=== PATIENT | female | born 1935 | race Caucasian/White ===

== ENCOUNTER 2016-11-02 | Outpatient (CLI) | END 2016-11-02 21:18 | disposition critical access hospital (66) | CPT/HCPCS: A0425; A0429 ==

== ENCOUNTER 2016-11-02 21:37 | Observation (INO) | payer MEDICARE ==
[2016-11-02] MEDS ORDERED: ACETAMINOPHEN 500 MG TABLET PO STA (23:46)
[2016-11-02] MEDS ORDERED: ACETAMINOPHEN 500 MG TABLET PO ONE (23:48)
[2016-11-03] MEDS ORDERED: ONDANSETRON 4 MG/2 ML VIAL IVP PRN (01:34)
[2016-11-03] MEDS ORDERED: SODIUM CHLORIDE FLUSH 0.9% 10 ML SYRINGE IVP PRN (01:34)
[2016-11-03] MEDS ORDERED: ACETAMINOPHEN 325 MG TABLET PO PRN (01:34)
[2016-11-03] MEDS ORDERED: KETOROLAC 15 MG/ML VIAL IVP PRN (01:42)
[2016-11-03] MEDS: HYDROcod/ACETAM 5/325 MG TABLET PO PRN ×2 (03:04→16:48)
[2016-11-03] MEDS ORDERED: SODIUM CHLORIDE 0.9% 1,000 ML IV SCH (05:00)
[2016-11-03] MEDS: SODIUM CHLORIDE FLUSH 0.9% 10 ML SYRINGE IVP SCH ×3 (05:58→21:54)
[2016-11-03] MEDS: LEVOTHYROXINE 25 MCG TABLET PO SCH (07:04)
[2016-11-03] MEDS: POLYETHYLENE GLYCOL 3350 17 GM PACKET PO SCH (08:37)
[2016-11-03] MEDS: CLOPIDOGREL 75 MG TABLET PO SCH (08:38)
[2016-11-03] MEDS: GABAPENTIN 300 MG CAPSULE PO SCH ×2 (08:38→16:42)
[2016-11-03] MEDS: ASPIRIN EC 81 MG TABLET PO SCH (08:38)
[2016-11-03] MEDS: OXYBUTYNIN 5MG TABLET PO SCH ×2 (08:39→21:54)
[2016-11-03] MEDS: NICOTINE 14 MG PATCH TOP SCH (08:39)
[2016-11-03] MEDS ORDERED: ENOXAPARIN 40 MG/0.4 ML SYRINGE SUBQ SCH (09:00)
[2016-11-03] MEDS ORDERED: GABAPENTIN 300 MG CAPSULE PO SCH (21:00)
[2016-11-03] MEDS ORDERED: NON FORMULARY MED (Simvastatin [Simvastatin] 40 MG) PO SCH (21:00)
[2016-11-03] MEDS: ATORVASTATIN 10 MG TABLET PO SCH (21:53)
[2016-11-04] MEDS: LEVOTHYROXINE 25 MCG TABLET PO SCH (06:55)
[2016-11-04] MEDS: SODIUM CHLORIDE FLUSH 0.9% 10 ML SYRINGE IVP SCH ×3 (06:55→20:46)
[2016-11-04] MEDS: IPRATROPIUM/ALBUTEROL 3 ML NEB INH PRN ×3 (08:44→17:05)
[2016-11-04] MEDS: POLYETHYLENE GLYCOL 3350 17 GM PACKET PO SCH (08:59)
[2016-11-04] MEDS: CLOPIDOGREL 75 MG TABLET PO SCH (09:00)
[2016-11-04] MEDS: OXYBUTYNIN 5MG TABLET PO SCH ×2 (09:00→20:44)
[2016-11-04] MEDS: GABAPENTIN 300 MG CAPSULE PO SCH (09:00)
[2016-11-04] MEDS: ASPIRIN EC 81 MG TABLET PO SCH (09:00)
[2016-11-04] MEDS: NICOTINE 14 MG PATCH TOP SCH (09:01)
[2016-11-04] MEDS: SODIUM CHLORIDE 0.9% 1,000 ML IV SCH (11:22)
[2016-11-04] MEDS: HYDROcod/ACETAM 5/325 MG TABLET PO PRN (17:58)
[2016-11-04] MEDS: ATORVASTATIN 10 MG TABLET PO SCH (20:44)
[2016-11-05] MEDS: SODIUM CHLORIDE 0.9% 1,000 ML IV SCH (01:09)
[2016-11-05] MEDS: HYDROcod/ACETAM 5/325 MG TABLET PO PRN ×2 (05:35→10:29)
[2016-11-05] MEDS: SODIUM CHLORIDE FLUSH 0.9% 10 ML SYRINGE IVP SCH ×3 (05:36→20:51)
[2016-11-05] MEDS: LEVOTHYROXINE 25 MCG TABLET PO SCH (06:29)
[2016-11-05] MEDS: NICOTINE 14 MG PATCH TOP SCH (10:28)
[2016-11-05] MEDS: CLOPIDOGREL 75 MG TABLET PO SCH (10:28)
[2016-11-05] MEDS: ASPIRIN EC 81 MG TABLET PO SCH (10:28)
[2016-11-05] MEDS: DOCUSATE SODIUM 250 MG CAPSULE PO SCH (10:28)
[2016-11-05] MEDS: POLYETHYLENE GLYCOL 3350 17 GM PACKET PO SCH (10:29)
[2016-11-05] MEDS: SENNA 8.6 MG TABLET PO SCH (10:29)
[2016-11-05] MEDS: OXYBUTYNIN 5MG TABLET PO SCH ×2 (10:29→20:51)
[2016-11-05] MEDS: traMADol 50 MG TABLET PO PRN ×2 (10:30→20:51)
[2016-11-05] MEDS: ATORVASTATIN 10 MG TABLET PO SCH (20:50)
[2016-11-06] MEDS: SODIUM CHLORIDE FLUSH 0.9% 10 ML SYRINGE IVP SCH ×2 (05:48→14:23)
[2016-11-06] MEDS: LEVOTHYROXINE 25 MCG TABLET PO SCH (06:30)
[2016-11-06] MEDS: DOCUSATE SODIUM 250 MG CAPSULE PO SCH (08:37)
[2016-11-06] MEDS: ASPIRIN EC 81 MG TABLET PO SCH (08:37)
[2016-11-06] MEDS: CLOPIDOGREL 75 MG TABLET PO SCH (08:37)
[2016-11-06] MEDS: NICOTINE 14 MG PATCH TOP SCH (08:37)
[2016-11-06] MEDS: OXYBUTYNIN 5MG TABLET PO SCH (08:37)
[2016-11-06] MEDS: SENNA 8.6 MG TABLET PO SCH (08:38)
[2016-11-06] MEDS: POLYETHYLENE GLYCOL 3350 17 GM PACKET PO SCH (08:38)
[2016-11-06] MEDS: HYDROcod/ACETAM 5/325 MG TABLET PO PRN ×2 (08:38→14:26)
[2016-11-06] MEDS: traMADol 50 MG TABLET PO PRN (08:38)
[2016-11-06] MEDS: GABAPENTIN 300 MG CAPSULE PO SCH ×2 (08:42→14:26)
== END 2016-11-06 15:51 | disposition home or self-care (01) ==
DX: S32.592A Other specified fracture of left pubis, initial encounter for closed fracture (principal); W01.0XXA Fall on same level from slipping, tripping and stumbling without subsequent striking against object, initial encounter; Y92.481 Parking lot as the place of occurrence of the external cause; T17.920A Food in respiratory tract, part unspecified causing asphyxiation, initial encounter; J96.01 Acute respiratory failure with hypoxia; Y92.239 Unspecified place in hospital as the place of occurrence of the external cause; N17.9 Acute kidney failure, unspecified; E86.0 Dehydration; I95.9 Hypotension, unspecified; L97.411 Non-pressure chronic ulcer of right heel and midfoot limited to breakdown of skin; I10 Essential (primary) hypertension; E78.5 Hyperlipidemia, unspecified; I77.9 Disorder of arteries and arterioles, unspecified; I73.9 Peripheral vascular disease, unspecified; E03.9 Hypothyroidism, unspecified; F32.9 Major depressive disorder, single episode, unspecified; F17.210 Nicotine dependence, cigarettes, uncomplicated; N39.45 Continuous leakage; Z79.02 Long term (current) use of antithrombotics/antiplatelets; Z86.73 Personal history of transient ischemic attack (TIA), and cerebral infarction without residual deficits; Z66 Do not resuscitate; Z79.82 Long term (current) use of aspirin; Z95.1 Presence of aortocoronary bypass graft
CPT/HCPCS: 36415; 36600; 51701; 71010; 71020; 72192; 73502; 80048; 80053; 81003; 82803; 83735; 84100; 84484; 85025; 85651; 86140; 94640; 96360; 96361; 97116; 97162; 97530; 99283; 99285; A9270; G0378; G8978; G8979; J7620

== ENCOUNTER 2016-11-18 10:30 | Outpatient (CLI) | payer MEDICARE | END 2016-11-18 10:31 | disposition home or self-care (01) | DX: R30.0 Dysuria (principal) ==

== ENCOUNTER 2016-11-22 | Outpatient (CLI) | payer MEDICARE | END 2016-11-22 20:05 | disposition critical access hospital (66) | CPT/HCPCS: A0425; A0429 ==

== ENCOUNTER 2016-11-22 20:23 | Emergency (ER) | payer MEDICARE ==
[2016-11-22] MEDS ORDERED: CIPROFLOXACIN 250 MG TABLET PO STA (22:38)
[2016-11-22] MEDS ORDERED: CIPROFLOXACIN 250 MG TABLET PO ONE (22:46)
== END 2016-11-22 23:14 | disposition home or self-care (01) ==
DX: N30.91 Cystitis, unspecified with hematuria (principal); F17.200 Nicotine dependence, unspecified, uncomplicated
CPT/HCPCS: 36415; 51701; 80048; 81001; 85025; 85610; 85730; 87077; 87086; 87181; 99283; A9270

== ENCOUNTER 2017-05-14 15:21 | Outpatient (CLI) | payer MEDICARE | END 2017-05-14 15:22 | disposition short-term general hospital (02) | LOC: EMS 15:21 | PROVIDERS: ATTEND Surgery | DX: M25.551 Pain in right hip (principal); R11.0 Nausea; W18.39XA Other fall on same level, initial encounter; Y92.000 Kitchen of unspecified non-institutional (private) residence as the place of occurrence of the external cause | CPT/HCPCS: A0425; A0427; A0888 ==

== ENCOUNTER 2017-08-11 13:51 | Outpatient (CLI) | payer MEDICARE ==
[2017-08-11 19:30] LABS: BASOPHILS % (AUTO) 0.3 %; EOSINOPHILS # (AUTO) 0.2 10^3/uL (0.0-0.7); EOSINOPHILS % (AUTO) 2.8 %; HCT - HEMATOCRIT 35.6 % (37.0-47.0); HGB - HEMOGLOBIN 11.6 g/dL (12.0-16.0); LYMPHOCYTES # (AUTO) 1.6 10^3/uL (1.5-3.5); LYMPHOCYTES % (AUTO) 19.8 %; MEAN CORPUSCULAR HEMOGLOBIN 29.9 pg (27.0-31.0); MEAN CORPUSCULAR HGB CONC 32.6 g/dL (32.0-36.0); MEAN CORPUSCULAR VOLUME 91.8 fL (81.0-99.0); MEAN PLATELET VOLUME 11.4 fL (7.9-10.8); MONOCYTES # (AUTO) 0.6 10^3/uL (0.0-1.0); MONOCYTES % (AUTO) 7.7 %; NEUTROPHILS # (AUTO) 5.7 10^3/uL (1.5-6.6); NEUTROPHILS % (AUTO) 69.4 %; NUCLEATED RED BLOOD CELLS AUTO 0.1 /100WBC; RED BLOOD COUNT 3.87 10^6/uL (4.20-5.40); RED CELL DISTRIBUTION WIDTH 15.8 % (12.0-15.0); UNCORRECTED WHITE BLOOD COUNT 8.2 x10^3/uL; WHITE BLOOD COUNT 8.2 x10^3/uL (4.8-10.8)
[2017-08-11 19:47] LABS: ALBUMIN/GLOBULIN RATIO 0.9 (1.0-2.2); BILIRUBIN,TOTAL 0.7 mg/dL (0.2-1.0); BUN - BLOOD UREA NITROGEN 22 mg/dL (6-20); CALCIUM 8.9 mg/dL (8.5-10.3); CARBON DIOXIDE - CO2 29 mmol/L (21-32); CHLORIDE 94 mmol/L (101-111); CREATININE 1.4 mg/dL (0.4-1.0); GFR - MDRD 36 (>89); GLUCOSE 119 mg/dL (70-100); POTASSIUM 2.9 mmol/L (3.5-5.0); SODIUM 134 mmol/L (135-145); TOTAL PROTEIN 7.1 g/dL (6.7-8.2)
== END 2017-08-11 13:52 | disposition home or self-care (01) ==
LOC: LAB.WCP 13:51
PROVIDERS: ATTEND Family Medicine
DX: R94.5 Abnormal results of liver function studies (principal); E03.9 Hypothyroidism, unspecified; E78.5 Hyperlipidemia, unspecified
CPT/HCPCS: 36415; 80053; 84443; 85025

== ENCOUNTER 2017-12-01 08:00 | Outpatient (CLI) | payer MEDICARE ==
[2017-12-01 19:09] LABS: CALCIUM 8.6 mg/dL (8.5-10.3); CREATININE 2.1 mg/dL (0.4-1.0); URIC ACID 8.4 mg/dL (2.6-7.2)
== END 2017-12-01 08:01 | disposition home or self-care (01) ==
LOC: LAB.WCP 08:00
PROVIDERS: ATTEND Family Medicine
DX: M10.9 Gout, unspecified (principal); E79.0 Hyperuricemia without signs of inflammatory arthritis and tophaceous disease
CPT/HCPCS: 36415; 80048; 84550

== ENCOUNTER 2018-08-17 08:10 | Emergency (ER) | payer MEDICARE ==
[2018-08-17] MEDS ORDERED: SODIUM CHLORIDE 0.9% 1,000 ML IV ONE ×2 (09:32→15:05)
--- NOTE | 2018-08-17 09:35 | ED Physician Documentation ---
History of Present Illness - Stated complaint Stated Complaint: LOW BP/DIZZY/UPSET STOMACH - Chief complaint Chief Complaint: General - History obtained from History obtained from: Patient, Family (son) - History of Present Illness Timing: How many weeks ago (1) - Additonal information Additional information: The patient is an 82-year-old female who reports feeling "sick" for about 1 week. She reports "stomachache, dizziness, and legs hurt." She has had decreased appetite and decreased energy level. She had one episode of diarrhea about 3 nights ago, but none since that time. She denies vomiting, dysuria, chest pain, cough or shortness of breath. She denies headache or sore throat. She was seen by her primary physician this morning and was sent to the emergency department for further evaluation and treatment, with the suggestion that she was likely dehydrated and would need some IV hydration. She has a long history of cigarette smoking, but quit smoking 1 year ago. Review of Systems Constitutional: reports: Fatigue. denies: Fever Eyes: denies: Irritation Ears: denies: Tinnitus/ringing Nose: denies: Congestion Throat: denies: Sore throat Cardiac: denies: Chest pain / pressure, Palpitations Respiratory: denies: Dyspnea, Cough GI: reports: Abdominal Pain ("stomachache"). denies: Nausea, Vomiting : denies: Dysuria Skin: denies: Rash Musculoskeletal: denies: Back pain, Extremity pain Neurologic: denies: Focal weakness, Numbness, Headache PD PAST MEDICAL HISTORY - Past Medical History Cardiovascular: High cholesterol, Coronary artery disease, Peripheral Vascular Disease Respiratory: None Endocrine/Autoimmune: HyPOthyroidism GI: None : Incontinence HEENT: None Psych: Depression, Other Musculoskeletal: Chronic back pain Derm: None - Past Surgical History Past Surgical History: Yes Ortho: Other Cardiovascular: Coronary stent, Other HEENT: Cataracts - Present Medications Home Medications: Ambulatory Orders Medication Instructions Recorded Confirmed Levothyroxine [Synthroid] 50 mcg ORAL DAILY 10/12/14 07/17/18 Simvastatin 40 mg PO QPM 10/12/14 07/17/18 Clopidogrel [Plavix] 75 mg PO DAILY 11/02/16 07/17/18 Furosemide 40 mg PO QDBREAKFAST 11/02/16 07/17/18 Allopurinol 2 tab PO BID 07/17/18 07/17/18 Aspirin [Adult Aspirin] 81 mg PO DAILY 07/17/18 07/17/18 Naproxen Sodium [Aleve] 1 - 2 tab PO ONCE PRN 07/17/18 07/17/18 Potassium Chloride 10 meq PO DAILY 07/17/18 07/17/18 - Allergies Allergies/Adverse Reactions: Allergies Allergy/AdvReac Type Severity Reaction Status Date / Time Penicillins Allergy Hives Verified 11/22/16 21:08 - Social History Does the pt smoke?: Yes Smoking Status: Unknown if ever smoked Does the pt drink ETOH?: Yes Does the pt have substance abuse?: No - Immunizations Immunizations are current?: Yes - POLST Patient has POLST: No PD ED PE NORMAL - Vitals Vital signs reviewed: Yes (borderline hypotension) - General General: Alert and oriented X 3, Well developed/nourished - HEENT HEENT: Atraumatic, Pharynx benign - Neck Neck: Supple, no meningeal sign, No adenopathy, No JVD - Cardiac Cardiac: RRR, No murmur - Respiratory Respiratory: No respiratory distress, Clear bilaterally - Abdomen Abdomen: Soft, Non tender, No organomegaly - Back Back: No CVA TTP - Derm Derm: No rash - Extremities Extremities: No edema, No calf tenderness / cord - Neuro Neuro: Alert and oriented X 3, No motor deficit, Normal speech Results - Vitals Vitals: Vital Signs - 24 hr 08/17/18 08/17/18 08/17/18 08:17 13:10 15:21 Temperature 36.0 C L 36.4 C L Heart Rate 83 99 86 Respiratory 16 18 16 Rate Blood Pressure 97/62 96/54 L 99/71 O2 Saturation 98 95 96 08/17/18 17:36 Temperature 36.2 C L Heart Rate 79 Respiratory 16 Rate Blood Pressure 109/86 H O2 Saturation 94 Oxygen O2 Source [] Nasal cannula O2 Source [] Nasal cannula O2 Source Room air - EKG (time done) 09:40 Rate: Rate (enter#) (90) Rhythm: NSR, Other (premature complexes) Mentcle: Normal Intervals: Normal CT Ischemia: Non specific changes Compare to prior EKG: Old EKG unavailable Computer interpretation: Agree with computer - Labs Labs: Laboratory Tests 08/17/18 08/17/18 08/17/18 09:45 09:45 09:45 WBC 19.3 H RBC 4.20 Hgb 10.8 L Hct 34.5 L MCV 82.1 MCH 25.6 L MCHC 31.2 L RDW 19.6 H Plt Count 264 MPV 10.6 Neut # (Auto) 17.2 H Lymph # (Auto) 0.7 L Holt # (Auto) 1.2 H Eos # (Auto) 0.1 Baso # (Auto) 0.1 Absolute Nucleated RBC 0.01 Nucleated RBC % 0.0 Sodium 131 L Potassium 3.4 L Chloride 88 L Carbon Dioxide 28 Anion Gap 15.0 H BUN 53 H Creatinine 2.6 H Estimated GFR (MDRD) 18 L Glucose 165 H Calcium 8.8 Total Bilirubin 1.9 H AST 96 H ALT 173 H Alkaline Phosphatase 258 H Troponin I 0.04 Total Protein 7.8 Albumin 3.1 L Globulin 4.7 H Albumin/Globulin Ratio 0.7 L Lipase 1014 H Urine Color Urine Clarity Urine pH Ur Specific Point Urine Protein Urine Glucose (UA) Urine Ketones Urine Occult Blood Urine Nitrite Urine Bilirubin Urine Urobilinogen Ur Leukocyte Esterase Urine RBC Urine WBC Ur Squamous Epith Cells Urine Bacteria Urine Casts Ur Microscopic Review Urine Culture Comments 08/17/18 10:10 WBC RBC Hgb Hct MCV MCH MCHC RDW Plt Count MPV Neut # (Auto) Lymph # (Auto) Holt # (Auto) Eos # (Auto) Baso # (Auto) Absolute Nucleated RBC Nucleated RBC % Sodium Potassium Chloride Carbon Dioxide Anion Gap BUN Creatinine Estimated GFR (MDRD) Glucose Calcium Total Bilirubin AST ALT Alkaline Phosphatase Troponin I Total Protein Albumin Globulin Albumin/Globulin Ratio Lipase Urine Color YELLOW Urine Clarity HAZY Urine pH 6.0 Ur Specific Point 1.020 Urine Protein 100 H Urine Glucose (UA) NEGATIVE Urine Ketones NEGATIVE Urine Occult Blood MODERATE H Urine Nitrite NEGATIVE Urine Bilirubin NEGATIVE Urine Urobilinogen 0.2 (NORMAL) Ur Leukocyte Esterase TRACE H Urine RBC 0-5 Urine WBC 0-3 Ur Squamous Epith Cells MOD Squamous H Urine Bacteria Few Urine Casts 3-5 Course Granular Ur Microscopic Review INDICATED Urine Culture Comments NOT INDICATED - Rads (name of study) U/S RUQ Radiology: Prelim report reviewed, EMP read contemporaneously, See rad report (1 x 0.5 x 0.9 cm distal common bile duct stone with dilated 13 mm common bile duct and thick walled gallbladder.) PD MEDICAL DECISION MAKING - ED course Complexity details: reviewed old records, reviewed results, re-evaluated patient, considered differential, d/w patient, d/w family, d/w PMD, d/w protection consultant ED course: The patient's presentation is significant for choledocholithiasis with acute pancreatitis. Ultrasound of the right upper quadrant reveals common bile duct stone measuring 1 cm x 0.5 cm x 0.9 cm in size, with common bile duct dilated to 13 mm. Abnormal labs include lipase of 1014, bilirubin 1.9, AST 96, ALT 178, and alkaline phosphatase 258. WBC is elevated at 19.3. Treatment in the emergency department included administration of normal saline IV. The patient declined treatment with antiemetic or pain medication. Cefoxitin 2 gm was administered IV. I discussed her condition with Dr. Lenz for gastroenterology at [facility] in [place], and subsequently with Dr. Merida, hospitalist at [facility]. He will accept the patient in transfer. She is being transferred by ambulance. Transfer forms were completed. Departure - Departure Disposition: 02 Transfer Acute Care Hosp Clinical Impression: Choledocholithiasis with obstruction Qualifiers: Cholangitis presence: without cholangitis Qualified Code(s): K80.51 - Calculus of bile duct without cholangitis or cholecystitis with obstruction Pancreatitis Qualifiers: Chronicity: acute Pancreatitis type: biliary Acute pancreatitis complication: unspecified Qualified Code(s): K85.10 - Biliary acute pancreatitis without necrosis or infection Condition: Fair
[2018-08-17 10:02] LABS: BASOPHILS # (AUTO) 0.1 10^3/uL (0.0-0.1); BASOPHILS % (AUTO) 0.6 %; EOSINOPHILS # (AUTO) 0.1 10^3/uL (0.0-0.7); EOSINOPHILS % (AUTO) 0.3 %; HGB - HEMOGLOBIN 10.8 g/dL (12.0-16.0); LYMPHOCYTES # (AUTO) 0.7 10^3/uL (1.5-3.5); LYMPHOCYTES % (AUTO) 3.5 %; MEAN CORPUSCULAR HEMOGLOBIN 25.6 pg (27.0-31.0); MEAN CORPUSCULAR HGB CONC 31.2 g/dL (32.0-36.0); MEAN CORPUSCULAR VOLUME 82.1 fL (81.0-99.0); MEAN PLATELET VOLUME 10.6 fL (7.9-10.8); MONOCYTES # (AUTO) 1.2 10^3/uL (0.0-1.0); MONOCYTES % (AUTO) 6.5 %; NEUTROPHILS # (AUTO) 17.2 10^3/uL (1.5-6.6); NEUTROPHILS % (AUTO) 89.1 %; PLT - PLATELET COUNT 264 10^3/uL (130-450); RED CELL DISTRIBUTION WIDTH 19.6 % (12.0-15.0); WHITE BLOOD COUNT 19.3 x10^3/uL (4.8-10.8)
[2018-08-17 10:17] LABS: GLUCOSE, URINE (UA) NEGATIVE (NEGATIVE); KETONES,URINE (UA) NEGATIVE (NEGATIVE); LEUKOCYTE ESTERASE, URINE TRACE (NEGATIVE); NITRITE,URINE NEGATIVE (NEGATIVE); OCCULT BLOOD,URINE MODERATE (NEGATIVE); PROTEIN,URINE 100 mg/dL (NEGATIVE); UROBILINOGEN,URINE 0.2 (NORMAL) E.U./dL (NORMAL)
[2018-08-17 10:34] LABS: ALBUMIN 3.1 g/dL (3.2-5.5); ALBUMIN/GLOBULIN RATIO 0.7 (1.0-2.2); BILIRUBIN,TOTAL 1.9 mg/dL (0.2-1.0); CALCIUM 8.8 mg/dL (8.5-10.3); CREATININE 2.6 mg/dL (0.4-1.0); TOTAL PROTEIN 7.8 g/dL (6.7-8.2)
[2018-08-17 10:34] LABS: BILIRUBIN,URINE NEGATIVE (NEGATIVE); CLARITY,URINE HAZY (CLEAR); ICTOTEST,URINE NEGATIVE
[2018-08-17 10:43] LABS: BACTERIA,URINE Few /HPF (None Seen); RBC,URINE 0-5 /HPF (0-5); SQUAMOUS EPITHELIAL CELL,UR MOD Squamous (<= Few)
[2018-08-17 10:44] LABS: CASTS, URINE 3-5 Course Granular /LPF
--- NOTE | 2018-08-17 12:51 | Ultrasound Report ---
Reason: abdominal pain, with elevated lipase Procedure Date: 08/17/2018 Accession Number: [id number] / [id number] Procedure: US - Abdomen Limited CPT Code: FULL RESULT: EXAM: ABDOMEN ULTRASOUND LIMITED, RUQ EXAM DATE: 08/17/2018 12:35 PM. CLINICAL HISTORY: Abdominal pain, with elevated lipase. COMPARISON: 10/14/2014 CT scan abdomen and pelvis and abdomen ultrasound. TECHNIQUE: Real-time scanning was performed with static images obtained. FINDINGS: Liver: Normal in size and slightly heterogeneous and coarse in echotexture. 15.5 cm. Main portal vein flow: Hepatopetal. Gallbladder: No stones within the gallbladder. Thickened gallbladder wall 4 mm. Biliary System: CBD measures 13 mm. 1 x 0.5 x 0.9 cm stone distal common bile duct Free fluid: None. Right kidney: 9.7 cm longitudinally. No hydronephrosis. IMPRESSION: 1 x 0.5 x 0.9 cm distal common bile duct stone with dilated 13 mm common bile duct and thick walled gallbladder. [facility]
[2018-08-17] MEDS ORDERED: cefOXitin 2 GM in SODIUM CHLORIDE 0.9% MINIBAG 100 ML IV STA (12:59)
[2018-08-17 17:38] VITALS: BP 109/86
== END 2018-08-17 18:30 | disposition short-term general hospital (02) ==
LOC: ED 08:10
DX: K80.51 Calculus of bile duct without cholangitis or cholecystitis with obstruction (principal); K85.10 Biliary acute pancreatitis without necrosis or infection; Z79.02 Long term (current) use of antithrombotics/antiplatelets; Z87.891 Personal history of nicotine dependence; Z79.82 Long term (current) use of aspirin
CPT/HCPCS: 36415; 76705; 80053; 81001; 81003; 83690; 84484; 85025; 87086; 93005; 96361; 96365; 99284; 99285

== ENCOUNTER 2018-08-17 18:31 | Outpatient (CLI) | payer MEDICARE | END 2018-08-17 18:32 | disposition short-term general hospital (02) | LOC: EMS 18:31 | PROVIDERS: ATTEND Surgery | DX: K80.50 Calculus of bile duct without cholangitis or cholecystitis without obstruction (principal); K85.90 Acute pancreatitis without necrosis or infection, unspecified | CPT/HCPCS: A0425; A0426 ==